=== PATIENT | female | born 1980 | race Caucasian/White ===

== ENCOUNTER 2020-05-20 09:44 | Emergency (ER) | payer OTHER, SELFPAY ==
--- NOTE | ~2020-05-20 | XR_ITS ---
EXAMINATION: XR ankle RT min 3V EXAM DATE: 05/20/2020 10:32 INDICATION: Initial encounter following injury, with pain of the right ankle. TECHNIQUE: Right ankle frontal, lateral and oblique projections obtained and reviewed. There is no p rior study for comparison. FINDINGS: The right ankle mortise appears intact. . There are no acute fractures or dislocations id entified. There is no subcutaneous gas. There is soft tissue swelling over the ankle anterolaterally . There are no radiopaque foreign bodies. Small calcaneal spurs. IMPRESSION: 1. XR ankle RT min 3V exam without acute osseous findings. 2. Soft tissue swelling. Reviewed, dictated and finalized at location A. [facility]
[2020-05-20 09:58] VITALS: BP 112/78; PULSE 98; RESP 20; TEMP 36.6; O2SAT 100
--- NOTE | 2020-05-20 10:48 | ED.LOWEXIN ---
HPI - Extremity Injury (Lower) General Chief Complaint: Extremity Injury, Lower Stated Complaint: right ankle pain Source: patient and RN notes reviewed Limitations: no limitations History of Present Illness HPI Narrative: The obese patient, previously mostly healthy, presents with right ankle pain. She slipped and fell climbing, she complains of mild pain is worse with motion, better at rest and started laterally. No bleeding, deformity or prior recent problems. Related Data Home Medications Medication Instructions Recorded Confirmed venlafaxine 75 mg PO DAILY 05/20/20 05/20/20 Allergies Allergy/AdvReac Type Severity Reaction Status Date / Time No Known Allergies Allergy Verified 01/17/20 14:46 Review of Systems Review of Systems: Narrative: General/Constitutional: No weight loss,fever Eyes: N0: Redness,discharge Ears/Nose/Throat: No: Epistaxis,ear discharge Respiratory: Denies: Hemoptysis Gastrointestinal: No Vomiting, Bleeding-rectal Skin: No Lumps, eruption Neurologic: No Focal Weakness,Sz Hematologic: Denies: Petechiae/Purpura Psychiatric: No: Suicida ideationl All Other Systems: Reviewed and Negative [facility] Past Medical History Medical History (Updated 05/20/20 @ 11:01 by William Armstrong MD) Anxiety and depression full term x2 vaginal deliveries. Surgical History Surgical History History of bladder surgery [place] teeth extracted Family History Family History Grandparent Malignant neoplasm of prostate Diabetes mellitus Father Diabetes mellitus Acute myocardial infarction Heart disease Sibling Breast cancer Grandparent Breast cancer Social History Social History Smoking status: Never smoker Second hand tobacco smoke exposure: No Alcohol intake: current Gender identity (if verbalized by the patient): Female Comments At time of signature, agree with nursing past medical, surgical, social and family history. There is no relevant family history pertinent to the presenting complaint Exam Narrative: Exam Narrative: General Appearance: Well appearing, , Conjunctiva clear Mouth/Throat: Normal appearing, Normal lips Neck: Supple Respiratory: Airway patent, No respiratory distress Musculoskeletal: Normal strength (mostly intact, limited flexion/extension by pain), Tenderness ( laterally, with mild decreased ROM), Swelling (laterally), Other (no anterior drawer, no collateral laxity, no Achilles tenderness, no fifth MT tenderness) Skin: Warm, Dry, Normal color Neurological: A&O x3, Normal affect Course Course Emergency Course: Films visualized, interpreted by radiologist, agree, normal see report Vital Signs Vital signs: Vital Signs Temperature 97.9 F 05/20/20 09:58 Pulse Rate 98 05/20/20 09:58 Respiratory Rate 20 05/20/20 09:58 Blood Pressure 112/78 05/20/20 09:58 Pulse Oximetry 100 05/20/20 09:58 Temperature 97.9 F 05/20/20 09:58 Pulse Rate 98 05/20/20 09:58 Respiratory Rate 20 05/20/20 09:58 Blood Pressure 112/78 05/20/20 09:58 Pulse Oximetry 100 05/20/20 09:58 Discharge Plan Discharge Clinical Impression: Ankle sprain Qualifiers: Encounter type: initial encounter Involved ligament of ankle: unspecified ligament Laterality: right Qualified Code(s): S93.401A - Sprain of unspecified ligament of right ankle, initial encounter Patient Disposition: Home, Self-Care Condition: Stable Instructions: Ankle Sprain (ED) Prescriptions: New acetaminophen-codeine 300-30 mg tablet 1 tablet PO HS PRN (Reason: pain) Qty: 10 RF: 0 tramadol 50 mg tablet 50 mg PO TID PRN (Reason: pain) Qty: 15 RF: 1 No Action venlafaxine 75 mg capsule,extended release 24hr 75 mg PO DAILY RF: 0 Follow-up/Referrals: [facility]
== END 2020-05-20 10:59 | disposition home or self-care (01) ==
PROVIDERS: Emergency Provider Emergency Medicine; PCP Internal Medicine
DX: S93.401A Sprain of unspecified ligament of right ankle, initial encounter (principal); W17.89XA Other fall from one level to another, initial encounter; F41.9 Anxiety disorder, unspecified; F32.9 Major depressive disorder, single episode, unspecified
CPT/HCPCS: 73610; 99213; G0463